=== PATIENT | male | born 1995 | race Two or more races ===

== ENCOUNTER 2019-01-21 12:01 | Emergency (ER) | payer MEDICAID, OTHER ==
[~2019-01-21] VITALS: Ht 170.2 cm; Wt 77.3 kg
[2019-01-21] MEDS ORDERED: mupirocin 2% ointment 22GM TP STA (12:20)
[2019-01-21] MEDS ORDERED: normal saline 1000ML IV soln IVB ONE ×2 (12:20→13:55)
[2019-01-21] MEDS ORDERED: morphine 4 MG/ML inj SYRINge IV ONE ×3 (12:20→14:40)
[2019-01-21] MEDS ORDERED: ondansetron/PF 4mg/2ml inj IV ONE (12:20)
[2019-01-21] MEDS ORDERED: TETanus/Pertussis (Acell)/Diphther VAC/PF (Tdap-Adult) 0.5ml syringe IM ONE (12:20)
[2019-01-21] MEDS ORDERED: ketorolac trometh. 30mg/ml inj. IV ONE (13:30)
[2019-01-21] MEDS ORDERED: diphenhydrAMINE 50 mg/ml inj IV ONE (13:30)
--- NOTE | 2019-01-21 13:39 | NUR ---
MARTÍN RN PLACED BACTROBAN TO PATIENT'S RIGHT ARM AND CHEST AND LARGE XEROFORM TO PATITIENT'S RIGHT ANTERIOR CHEST
--- NOTE | 2019-01-21 15:07 | NUR ---
PER DR HARRISON: PATIENT TO TRANSFER VIA POV DUE TO TRANSPORT WAIT TIME OF 12 HOURS.PHONE REPORT TO LAURYN ESQUEDA [facility] [phone]
[2019-01-21 15:52] VITALS: BP 132/67
== END 2019-01-21 15:57 | disposition short-term general hospital (02) ==
LOC: ER 12:03
DX: T21.22XA Burn of second degree of abdominal wall, initial encounter (principal); T21.21XA Burn of second degree of chest wall, initial encounter; T22.20XA Burn of second degree of shoulder and upper limb, except wrist and hand, unspecified site, initial encounter; T23.272A Burn of second degree of left wrist, initial encounter; X11.8XXA Contact with other hot tap-water, initial encounter; Y93.89 Activity, other specified; Y92.89 Other specified places as the place of occurrence of the external cause; Y99.8 Other external cause status
CPT/HCPCS: 16020; 90471; 90715; 96374; 96375; 96376; 99285; J1200; J1885; J2270; J2405; J7030